=== PATIENT | female | born 1980 | race Caucasian/White ===

== ENCOUNTER 2019-01-26 17:15 | Emergency (ER) | payer OTHER ==
[~2019-01-26] VITALS: Ht 162.6 cm; Wt 62.6 kg
== END 2019-01-26 21:42 | disposition home or self-care (01) ==
LOC: ER 17:15 → EDBD 18:13 → ER 18:13
DX: N83.291 Other ovarian cyst, right side (principal); R10.31 Right lower quadrant pain